=== PATIENT | male | born 1950 | race Caucasian/White ===

== ENCOUNTER 2022-09-18 10:23 | Emergency (ER) | payer OTHER ==
[2022-09-18] VITALS (9 sets, daily range): BP systolic 131–155; BP diastolic 75–87
[~2022-09-18] VITALS: Ht 167.6 cm; Wt 80.8 kg
== END 2022-09-18 15:01 | disposition home or self-care (01) | DRG 935 ==
LOC: ED 10:23
DX: T23.201A Burn of second degree of right hand, unspecified site, initial encounter (principal); T31.0 Burns involving less than 10% of body surface; X12.XXXA Contact with other hot fluids, initial encounter; I10 Essential (primary) hypertension